=== PATIENT | female | born 1970 | race Caucasian/White ===

== ENCOUNTER → 2017-10-26 | Outpatient (CLI) | payer BC ==
--- NOTE | 2017-11-02 15:54 | MM ---
Reason for exam: screening (asymptomatic). MG 3D Screening Mammo W/Cad Bilateral CC and MLO view(s) were taken. The breast tissue is heterogeneously dense. This may lower the sensitivity of mammography. No suspicious abnormality. No significant changes when compared with prior studies. ASSESSMENT: Negative, BI-RAD 1 RECOMMENDATION: Routine screening mammogram of both breasts in 1 year.
== END | disposition home or self-care (01) ==
LOC: RADMAMWWP 16:50
PROVIDERS: ATTEND Family Medicine
DX: Z12.31 Encounter for screening mammogram for malignant neoplasm of breast (principal)
CPT/HCPCS: 77063; 77067

== ENCOUNTER → 2018-01-25 | Outpatient (CLI) | payer BC ==
--- NOTE | 2018-01-25 20:50 | CONS ---
CONSULTATION DATE OF SERVICE: 01/25/2018 47-year-old lady has [facility]oring and awakenings from sleep. HISTORY OF PRESENT ILLNESS/SLEEP-WAKE EVALUATION: Patient usual sleep schedule on weekdays from 9:00 p.m. until 5:30 -6:00 a.m. and on weekends from 9:00 or 10:00 p.m. until 5:30 - 7:00 a.m. No problem with falling asleep. No TV in bedroom. She sleeps in different position with her and according to him, she has loud snoring. She wakes up from sleep several times with up to 2 episodes of nocturia at night. She increased her weight in the last 5 years about 50 pounds. No history of hypnagogic hallucinations, sleep paralysis or cataplexy. In the morning, she wakes up tired, may feel sleepy during the day. [place] Sleepiness Scale is 6. Oximetry which was done in 01/25/2018 showed oxygen below or equal 88% for 28.4 minutes and there are episodes of oxygen desaturation during the sleep. PAST MEDICAL HISTORY: Basically negative except episodes of hot flashes recently. PAST SURGICAL HISTORY: D&C. REVIEW OF SYSTEMS: Awakenings from sleep. Increasing weight, hot flashes. SOCIAL HISTORY: Negative for smoking. Alcohol consumption rarely. MEDICATIONS: None. FAMILY HISTORY: Heart problems, arthritis, mental illness. PHYSICAL EXAM: GENERAL lady without distress. VITAL SIGNS BP 122/69, HR 74, height 4 feet 10 inches, weight 182.8, body mass index 37.3, temperature 98.2, oxygen saturation at room air 99%. HEDOTTIE PERRLA, EOMI, evaluation of oropharynx showed extremely low position of soft palate. Neck 15-2/3 inches in circumference. NECK Supple, no JVD. Thyroid is not palpable. LUNGS Clear to percussion and to auscultation. Good air exchange. No wheezing or rhonchi. HEART S1, S2 regular. No murmurs, gallops, or rubs. ABDOMEN Obese. Soft and nontender. Bowel sounds are present. No organomegaly appreciated. EXTREMITIES No clubbing or cyanosis. LEATHER PIECE INSPECTOR Awake, alert, and oriented X3. Cranial nerves 2 to 7 intact. There is no fasciculation or atrophy. noted. No focal deficits observed. PLAN: 1. Home sleep apnea test for evaluation of patient breathing and confirming some breathing problem during the sleep. 2. Following plan after reviewing sleep study. 3. Losing weight. 4. Sleep hygiene with regular time in bed for at least 8 hours. 5. No driving if feeling sleepiness. Thank you very much for referring this patient for consultation. Sincerely, Rangel Rivera MD, PhD, FAASM Diplomat of [place] [employer] [place] [employer] [facility] [place] MMODL / IJN: [id number] /
== END | disposition home or self-care (01) ==
LOC: SLEEP 16:34
PROVIDERS: ATTEND Internal Medicine
DX: R06.83 Snoring (principal); R35.1 Nocturia
CPT/HCPCS: 99211

== ENCOUNTER → 2020-05-04 | Outpatient (CLI) | payer BC ==
--- NOTE | 2020-05-06 08:42 | MM ---
Reason for exam: screening (asymptomatic). Last mammogram was performed 2 years and 6 months ago. History: Took hormonal contraceptives for 2 years. Physical Findings: A clinical breast exam by your physician is recommended on an annual basis and results should be correlated with mammographic findings. MG 3D Screening Mammo W/Cad Bilateral CC and MLO view(s) were taken. Prior study comparison: October 26, 2017, bilateral MG 3d screening mammo w/cad. There are scattered fibroglandular densities. No significant changes when compared with prior studies. ASSESSMENT: Benign, BI-RAD 2 RECOMMENDATION: Routine screening mammogram of both breasts in 1 year.
== END | disposition home or self-care (01) ==
LOC: RADMAMWWP 06:55
PROVIDERS: ATTEND Family Medicine
DX: Z12.31 Encounter for screening mammogram for malignant neoplasm of breast (principal)
CPT/HCPCS: 77063; 77067

== ENCOUNTER → 2021-09-03 | Outpatient (CLI) | payer BC ==
--- NOTE | 2021-09-06 14:20 | MM ---
Reason for Exam: Screening (asymptomatic). Last mammogram was performed 1 year(s) and 4 month(s) ago. Patient History: Menarche at age 10. First Full-Term at age 17. Patient used Hormonal Contraceptives for 2 years. Risk Values: Juju 5 year model risk: 0.8%. NCI Lifetime model risk: 7.1%. Prior Study Comparison: 10/26/2017 Bilateral Screening Mammogram, [facility]. 05/04/2020 Bilateral Screening Mammogram, [facility]. Tissue Density: There are scattered fibroglandular densities. Findings: Analyzed By CAD. There is no suspicious group of microcalcifications or new suspicious mass in either breast. Overall Assessment: Negative, BI-RAD 1 Management: Screening Mammogram of both breasts in 1 year. A clinical breast exam by your physician is recommended on an annual basis and results should be correlated with mammographic findings. Electronically signed and approved by: Jelani Parikh M.D. Radiologis
== END | disposition home or self-care (01) ==
LOC: RADMAMWWP 14:34
PROVIDERS: ATTEND Family Medicine
DX: Z12.31 Encounter for screening mammogram for malignant neoplasm of breast (principal)
CPT/HCPCS: 77063; 77067

== ENCOUNTER 2023-01-17 12:05 | Emergency (ER) | payer BC ==
[2023-01-17] MEDS ORDERED: IBUPROFEN 600 MG TAB PO STA (12:38)
[2023-01-17] MEDS ORDERED: ACETAMINOPHEN TAB 500 MG TAB PO STA (12:38)
--- NOTE | 2023-01-17 13:03 | ED ---
General Adult HPI - General Chief complaint: Upper Respiratory Infection Stated complaint: chest pressure Time Seen by Provider: 01/17/23 12:10 Source: patient, RN notes reviewed, old records reviewed Mode of arrival: ambulatory Limitations: no limitations - History of Present Illness Initial comments: This a 52-year-old female presents emergency Department complaining of one week history of upper respiratory symptoms. Patient states she's been congested occasional cough and has body aches. Patient states she went to the urgent care and they sent her over here after she tested negative for COVID and influenza. Patient states she's had a little bit of a sore throat but not bad. Patient denies any tobacco to breathing or shortness of breath per patient denies coughing up any sputum. Patient denies abdominal pain patient denies nausea vomiting per patient denies any dysuria hematuria urinary frequency. - Related Data Home Medications Medication Instructions Recorded Confirmed Cetirizine HCl [Zyrtec] 10 mg PO DAILY PRN 01/17/23 01/17/23 Famotidine [Pepcid AC] 10 - 20 mg PO DAILY PRN 01/17/23 01/17/23 Ibuprofen [Motrin Ib] 200 - 400 mg PO Q8H PRN 01/17/23 01/17/23 Allergies Allergy/AdvReac Type Severity Reaction Status Date / Time methylprednisolone Allergy Dyspnea Verified 01/17/23 13:22 [From Solu-Medrol] Review of Systems ROS Statement: Those systems with pertinent positive or pertinent negative responses have been documented in the HPI. ROS Other: All systems not noted in ROS Statement are negative. Past Medical History Past Medical History: No Reported History History of Any Multi-Drug Resistant Organisms: None Reported Additional Past Surgical History / Comment(s): D & C Past Psychological History: No Psychological Hx Reported Smoking Status: Current every day smoker Past Alcohol Use History: None Reported Past Drug Use History: None Reported General Exam - General Exam Comments Initial Comments: GENERAL: Patient is well-developed and well-nourished. Patient is nontoxic and well- hydrated and is in mild distress. I took the patient's temperature was 100.3 ENT: Neck is soft and supple. No significant lymphadenopathy is noted. Oropharynx is clear. Moist mucous membranes. Neck has full range of motion without eliciting any pain. EYES: The sclera were anicteric and conjunctiva were pink and moist. Extraocular movements were intact and pupils were equal round and reactive to light. Eyelids were unremarkable. PULMONARY: Unlabored respirations. Good breath sounds bilaterally. No audible rales rhonchi or wheezing was noted. CARDIOVASCULAR: Patient was tachycardic at 115 bpm ABDOMEN: Soft and nontender with normal bowel sounds. SKIN: Skin is clear with no lesions or rashes and otherwise unremarkable. NEUROLOGIC: Patient is alert and oriented x3. Cranial nerves II through XII are grossly intact. Motor and sensory are also intact. Normal speech, volume and content. Symmetrical smile. MUSCULOSKELETAL: Normal extremities with adequate strength and full range of motion. LYMPHATICS: No significant lymphadenopathy is noted PSYCHIATRIC: Normal psychiatric evaluation. Limitations: no limitations Course Vital Signs 01/17/23 01/17/23 01/17/23 12:08 12:34 14:23 Temperature 98.8 F 100.3 F H 99.5 F Pulse Rate 115 H 103 H Respiratory 20 16 Rate Blood Pressure 119/67 115/81 O2 Sat by Pulse 99 98 Oximetry Medical Decision Making - Medical Decision Making Was pt. sent in by a medical professional or institution (, PA, BUILDING CERTIFIER, urgent care, hospital, or halfway...) When possible be specific @ -Patient was sent to us by urgent care Did you speak to anyone other than the patient for history (EMS, parent, family, police, friend...)? What history was obtained from this source @ -No Did you review nursing and triage notes (agree or disagree)? Why? @ -I reviewed and agree with nursing and triage notes Were old charts reviewed (outside hosp., previous admission, EMS record, old EKG, old radiological studies, urgent care reports/EKG's, halfway records)? Report findings @ -No old charts were reviewed Differential Diagnosis (chest pain, altered mental status, abdominal pain women, abdominal pain men, vaginal bleeding, weakness, fever, dyspnea, syncope, headache, dizziness, GI bleed, back pain, seizure, CVA, palpatations, mental health, musculoskeletal)? @ -COVID, influenza A, influenza B, RSV, pneumonia, bronchitis this is not an all inclusive list EKG interpreted by me (3pts min.). @ -As above X-rays interpreted by me (1pt min.). @ -Chest x-ray shows no acute abnormality CT interpreted by me (1pt min.). @ -None done U/S interpreted by me (1pt. min.). @ -None done What testing was considered but not performed or refused? (CT, X-rays, U/S, labs)? Why? @ -None What meds were considered but not given or refused? Why? @ -None Did you discuss the management of the patient with other professionals (professionals i.e. Dr., PA, BUILDING CERTIFIER, lab, RT, psych nurse, social media content specialist, magnetometer operator, teacher, administrative hearing officer, field nurse case manager)? Give summary @ -No Was smoking cessation discussed for >3mins.? @ -No Was critical care preformed (if so, how long)? @ -No Were there social determinants of health that impacted care today? How? (Homelessness, low income, unemployed, alcoholism, drug addiction, transportation, low edu. Level, literacy, decrease access to med. care, snf, rehab)? @ -No Was there de-escalation of care discussed even if they declined (Discuss DNR or withdrawal of care, Hospice)? DNR status @ -No What co-morbidities impacted this encounter? (DM, HTN, Smoking, COPD, CAD, Cancer, CVA, ARF, Chemo, Hep., AIDS, mental health diagnosis, sleep apnea, morbid obesity)? @ -None Was patient admitted / discharged? Hospital course, mention meds given and route, prescriptions, significant lab abnormalities, going to OR and other pertinent info. @ -Is given Tylenol and Motrin to reduce the fever and after that her heart rate was 103 which was down from the 1:15 and 120 when she arrived. Patient was feeling better and had no further complaints in the upper respiratory symptoms Undiagnosed new problem with uncertain prognosis? @ -No Drug Therapy requiring intensive monitoring for toxicity (Heparin, Nitro, Insulin, Cardizem)? @ -No Were any procedures done? @ -No Diagnosis/symptom? @ -Upper respiratory infection Acute, or Chronic, or Acute on Chronic? @ -Acute Uncomplicated (without systemic symptoms) or Complicated (systemic symptoms)? @ -Uncomplicated Side effects of treatment? @ -No Exacerbation, Progression, or Severe Exacerbation? @ -No Poses a threat to life or bodily function? How? (Chest pain, [place], [place], pneumonia, PE, COPD, DKA, ARF, appy, cholecystitis, CVA, Diverticulitis, Homicidal, Suicidal, threat to staff... and all critical care pts) @ -No - Lab Data Lab Results 01/17/23 Range/Units 13:00 Influenza Type A (PCR) Not Detected (Not Detectd) Influenza Type B (PCR) Not Detected (Not Detectd) RSV (PCR) Not Detected (Not Detectd) SARS-CoV-2 (PCR) Not Detected (Not Detectd) Disposition Clinical Impression: Acute upper respiratory infection Disposition: HOME SELF-CARE Condition: Good Instructions (If sedation given, give patient instructions): Upper Respiratory Infection (ED) Is patient prescribed a controlled substance at d/c from ED?: No Referrals: Elijah Saeed MD [Primary Care Provider] - 1-2 days Time of Disposition: 14:49
--- NOTE | 2023-01-17 13:58 | XR ---
EXAMINATION TYPE: XR chest 2V DATE OF EXAM: 01/17/2023 COMPARISON: None INDICATION: Difficulty breathing TECHNIQUE: Frontal and lateral views of the chest are obtained. FINDINGS: The heart size is normal. The pulmonary vasculature is normal. The lungs are clear. IMPRESSION: 1. No acute pulmonary process.
[2023-01-17 14:33] VITALS: BP 115/81; PULSE 103; RESP 16; TEMP 99.5
== END 2023-01-17 15:05 | disposition home or self-care (01) ==
LOC: EC 12:05
DX: J06.9 Acute upper respiratory infection, unspecified (principal); F17.200 Nicotine dependence, unspecified, uncomplicated; Z88.8 Allergy status to other drugs, medicaments and biological substances; Z20.822 Contact with and (suspected) exposure to COVID-19
CPT/HCPCS: 71046; 87636; 99284

== ENCOUNTER 2023-01-19 17:36 | Emergency (ER) | payer BC ==
--- NOTE | 2023-01-19 18:34 | ED ---
General Adult HPI - General Source: patient, RN notes reviewed <Julianna Arroyo - Last Filed: 01/19/23 18:32> <Justice Chavez - Last Filed: 01/20/23 00:13> - General Stated complaint: Increased heart rate Time Seen by Provider: 01/19/23 18:30 - History of Present Illness Initial comments: 52-year-old female presents to the emergency room chief complaint of elevated heart rate. Patient states that she is sent in by Dr. Saeed's office. She reports that she feels like her heart is racing. She states this is worse when she stands up. She states that this started around 9 days ago with flu like symptoms. The muscle aches improved but she continues to have elevated heart rate and palpitations. (Julianna Arroyo) 52-year-old female presenting with chief complaint of palpitations. Patient reports that she has elevated heart rate for several days. She was seen at our facility on 01/17 who was diagnosed with a URI after negative chest x-ray and 4- plex swab. Patient was seen at her PCPs office today and she was sent to the ER to rule out pulmonary embolism. Patient reports shortness of breath and chest discomfort. She's had continued fevers and elevated heart rate. She admits to diffuse muscle aches. Denies nausea, vomiting, diarrhea, abdominal pain, numbness, tingling. (Justice Chavez) - Related Data Home Medications Medication Instructions Recorded Confirmed Cetirizine HCl [Zyrtec] 10 mg PO DAILY PRN 01/17/23 01/19/23 Famotidine [Pepcid AC] 20 mg PO BID PRN 01/17/23 01/19/23 Ibuprofen [Motrin Ib] 800 mg PO Q8H PRN 01/17/23 01/19/23 Acetaminophen Tab [Tylenol Tab] 1,000 mg PO Q6HR PRN 01/19/23 01/19/23 Allergies Allergy/AdvReac Type Severity Reaction Status Date / Time methylprednisolone Allergy Dyspnea Verified 01/19/23 20:17 [From Solu-Medrol] Review of Systems ROS Other: All systems not noted in ROS Statement are negative. <Julianna Arroyo - Last Filed: 01/19/23 18:32> ROS Other: All systems not noted in ROS Statement are negative. <Justice Chavez - Last Filed: 01/20/23 00:13> ROS Statement: Those systems with pertinent positive or pertinent negative responses have been documented in the HPI. Past Medical History Past Medical History: No Reported History History of Any Multi-Drug Resistant Organisms: None Reported Additional Past Surgical History / Comment(s): D & C Past Psychological History: No Psychological Hx Reported Smoking Status: Current every day smoker Past Alcohol Use History: None Reported Past Drug Use History: None Reported <Julianna Arroyo - Last Filed: 01/19/23 18:32> General Exam <Julianna Arroyo - Last Filed: 01/19/23 18:32> Limitations: no limitations General appearance: alert, in no apparent distress Head exam: Present: atraumatic, normocephalic, normal inspection Eye exam: Present: normal appearance, EOMI Neck exam: Present: normal inspection, full ROM Respiratory exam: Present: normal lung sounds bilaterally. Absent: respiratory distress, wheezes, rales, rhonchi, stridor Cardiovascular Exam: Present: normal rhythm, tachycardia, normal heart sounds. Absent: systolic murmur, diastolic murmur, rubs, gallop, clicks GI/Abdominal exam: Present: soft. Absent: distended, tenderness, guarding, rebound, rigid Extremities exam: Absent: pedal edema Neurological exam: Present: alert, oriented X3 Psychiatric exam: Present: normal affect, normal mood Skin exam: Present: warm, dry, intact, normal color. Absent: rash <Justice Chavez - Last Filed: 01/20/23 00:13> - General Exam Comments Initial Comments: Visual Physical Exam Vital signs reviewed General: Well-appearing, nontoxic, no acute distress. Head: Normocephalic, atraumatic Eyes: PERRLA, EOMI ENT: Airway patent Chest: Nonlabored breathing Skin: No visual rash, normal skin tone Neuro: Alert and oriented 3 Musculoskeletal: No gross abnormalities (Julianna Arroyo) Course Vital Signs 01/19/23 01/19/23 01/19/23 18:27 19:54 22:19 Temperature 100.7 F H 102.7 F H 100.5 F H Pulse Rate 120 H 116 H 129 H Respiratory 20 18 20 Rate Blood Pressure 149/98 141/96 111/71 O2 Sat by Pulse 98 100 96 Oximetry 01/19/23 23:36 Temperature 98.8 F Pulse Rate 104 H Respiratory 18 Rate Blood Pressure 111/71 O2 Sat by Pulse 94 L Oximetry Medical Decision Making <Julianna Arroyo - Last Filed: 01/19/23 18:32> - Lab Data Result diagrams: 01/19/23 19:25 01/19/23 19:25 <Justice Chavez - Last Filed: 01/20/23 00:13> - Medical Decision Making I preformed the quick note portion of this chart. Electronically signed by Julianna Arroyo PA-C (Julianna Arroyo) Was pt. sent in by a medical professional or institution (LAURO Lugo, SALES SUPPORT REPRESENTATIVE, urgent care, hospital, or alf...) When possible be specific @ -sent by PCP Did you speak to anyone other than the patient for history (EMS, parent, family, police, friend...)? What history was obtained from this source @ -No Did you review nursing and triage notes (agree or disagree)? Why? @ -I reviewed and agree with nursing and triage notes Were old charts reviewed (outside hosp., previous admission, EMS record, old EKG, old radiological studies, urgent care reports/EKG's, alf records)? Report findings @ -No old charts were reviewed Differential Diagnosis (chest pain, altered mental status, abdominal pain women, abdominal pain men, vaginal bleeding, weakness, fever, dyspnea, syncope, headache, dizziness, GI bleed, back pain, seizure, CVA, palpatations, mental health, musculoskeletal)? @ -MDM Differential Dyspnea: Coronary syndrome, arrhythmia, tamponade, asthma, COPD, pulmonary embolism, pn eumonia, pneumothorax, pulmonary effusion, anaphylaxis, diabetic ketoacidosis, flailed chest, pulmonary contusion, diaphragmatic rupture, anemia, neuromuscular this is not meant to be an all-inclusive list. EKG interpreted by me (3pts min.). @ -EKG shows sinus tachycardia ventricular rate 118. W[place] interval 178. QRS 88. QT interval 2. QTC 39. Osteoarthritis.. X-rays interpreted by me (1pt min.). @ -Negative chest x-ray CT interpreted by me (1pt min.). @ -Negative CTA of the chest U/S interpreted by me (1pt. min.). @ -None done What testing was considered but not performed or refused? (CT, X-rays, U/S, labs)? Why? @ -None What meds were considered but not given or refused? Why? @ -None Did you discuss the management of the patient with other professionals (professionals i.e. , PA, SALES SUPPORT REPRESENTATIVE, lab, RT, psych nurse, social sciences research scientist, exhibit builder, teacher, youth officer, case mgr)? Give summary @ -No Was smoking cessation discussed for >3mins.? @ -No Was critical care preformed (if so, how long)? @ -No Were there social determinants of health that impacted care today? How? (Homelessness, low income, unemployed, alcoholism, drug addiction, transportation, low edu. Level, literacy, decrease access to med. care, correction, rehab)? @ -No Was there de-escalation of care discussed even if they declined (Discuss DNR or withdrawal of care, Hospice)? DNR status @ -No What co-morbidities impacted this encounter? (DM, HTN, Smoking, COPD, CAD, Cancer, CVA, ARF, Chemo, Hep., AIDS, mental health diagnosis, sleep apnea, morbid obesity)? @ -None Was patient admitted / discharged? Hospital course, mention meds given and rout e, prescriptions, significant lab abnormalities, going to OR and other pertinent info. @ -52-year-old female presenting with chief complaint of elevated heart rate. On physical exam patient is found to be febrile and tachycardic. Patient is given Motrin Tylenol and fluids as well as Ativan for anxiety. Lab work shows no leukocytosis or anemia. Mild transaminitis. Negative troponin. TSH 8.580 with a free T4 of 1.02 d-dimer 2.02. CT shows no pulmonary embolism or other a cute process. On reassessment patient is resting comfortably. She is educated on today's findings. She'll be discharged home and instructed to follow-up with Dr. Saeed. Follow-up with PCP. Report back to ER with any new or worsening symptoms. Discussed return parameters and answered all questions. Patient conveyed verbal understanding and agreed to the plan. I discussed this case in detail with my attending Dr. Dawkins Undiagnosed new problem with uncertain prognosis? @ -No Drug Therapy requiring intensive monitoring for toxicity (Heparin, Nitro, Insulin, Cardizem)? @ -No Were any procedures done? @ -No Diagnosis/symptom? @ -URI Acute, or Chronic, or Acute on Chronic? @ -Acute Uncomplicated (without systemic symptoms) or Complicated (systemic symptoms)? @ -Uncomplicated Side effects of treatment? @ -No Exacerbation, Progression, or Severe Exacerbation? @ -No Poses a threat to life or bodily function? How? (Chest pain, USA, MD, pneumonia, PE, COPD, DKA, ARF, appy, cholecystitis, CVA, Diverticulitis, Homicidal, Suicidal, threat to staff... and all critical care pts) @ -No (Justice Chavez) - Lab Data Lab Results 01/19/23 01/19/23 01/19/23 Range/Units 19:25 19:25 19:25 WBC 6.3 (3.8-10.6) k/uL RBC 5.18 (3.80-5.40) m/uL Hgb 16.0 (11.4-16.0) gm/dL Hct 47.6 H (34.0-46.0) % MCV 91.8 (80.0-100.0) fL MCH 30.8 (25.0-35.0) pg MCHC 33.6 (31.0-37.0) g/dL RDW 13.9 (11.5-15.5) % Plt Count 202 (150-450) k/uL MPV 7.4 Neutrophils % (Manual) 48 % Band Neuts % (Manual) 5 % Lymphocytes % (Manual) 31 % Monocytes % (Manual) 14 % Eosinophils % (Manual) 2 % Neutrophils # (Manual) 3.30 (1.3-7.7) k/uL Lymphocytes # (Manual) 1.95 (1.0-4.8) k/uL Monocytes # (Manual) 0.88 (0-1.0) k/uL Eosinophils # (Manual) 0.13 (0-0.7) k/uL Nucleated RBCs 0 (0-0) /100 WBC Manual Slide Review Performed RBC Morphology Normal PT 9.9 L (10.0-12.5) sec INR 0.9 (<1.2) APTT 24.8 (22.0-30.0) sec D-Dimer 2.02 H (<0.60) mg/L FEU Sodium 138 (137-145) mmol/L Potassium 4.1 (3.5-5.1) mmol/L Chloride 101 (98-107) mmol/L Carbon Dioxide 26 (22-30) mmol/L Anion Gap 11 mmol/L BUN 12 (7-17) mg/dL Creatinine 0.84 (0.52-1.04) mg/dL Est GFR (CKD-EPI)AfAm >90 (>60 ml/min/1.73 sqM) Est GFR (CKD-EPI)NonAf 80 (>60 ml/min/1.73 sqM) Glucose 140 H (74-99) mg/dL Calcium 9.0 (8.4-10.2) mg/dL Magnesium 1.9 (1.6-2.3) mg/dL Total Bilirubin 0.6 (0.2-1.3) mg/dL AST 140 H (14-36) U/L ALT 215 H (4-34) U/L Alkaline Phosphatase 211 H (38-126) U/L Troponin I (0.000-0.034) ng/mL Total Protein 8.0 (6.3-8.2) g/dL Albumin 4.1 (3.5-5.0) g/dL TSH 8.580 H (0.465-4.680) mIU/L Free T4 1.02 (0.78-2.19) ng/dL 01/19/23 Range/Units 19:25 WBC (3.8-10.6) k/uL RBC (3.80-5.40) m/uL Hgb (11.4-16.0) gm/dL Hct (34.0-46.0) % MCV (80.0-100.0) fL MCH (25.0-35.0) pg MCHC (31.0-37.0) g/dL RDW (11.5-15.5) % Plt Count (150-450) k/uL MPV Neutrophils % (Manual) % Band Neuts % (Manual) % Lymphocytes % (Manual) % Monocytes % (Manual) % Eosinophils % (Manual) % Neutrophils # (Manual) (1.3-7.7) k/uL Lymphocytes # (Manual) (1.0-4.8) k/uL Monocytes # (Manual) (0-1.0) k/uL Eosinophils # (Manual) (0-0.7) k/uL Nucleated RBCs (0-0) /100 WBC Manual Slide Review RBC Morphology PT (10.0-12.5) sec INR (<1.2) APTT (22.0-30.0) sec D-Dimer (<0.60) mg/L FEU Sodium (137-145) mmol/L Potassium (3.5-5.1) mmol/L Chloride (98-107) mmol/L Carbon Dioxide (22-30) mmol/L Anion Gap mmol/L BUN (7-17) mg/dL Creatinine (0.52-1.04) mg/dL Est GFR (CKD-EPI)AfAm (>60 ml/min/1.73 sqM) Est GFR (CKD-EPI)NonAf (>60 ml/min/1.73 sqM) Glucose (74-99) mg/dL Calcium (8.4-10.2) mg/dL Magnesium (1.6-2.3) mg/dL Total Bilirubin (0.2-1.3) mg/dL AST (14-36) U/L ALT (4-34) U/L Alkaline Phosphatase (38-126) U/L Troponin I <0.012 (0.000-0.034) ng/mL Total Protein (6.3-8.2) g/dL Albumin (3.5-5.0) g/dL TSH (0.465-4.680) mIU/L Free T4 (0.78-2.19) ng/dL Disposition <Julianna Arroyo - Last Filed: 01/19/23 18:32> Is patient prescribed a controlled substance at d/c from ED?: No Time of Disposition: 23:10 <Justice Chavez - Last Filed: 01/20/23 00:13> Clinical Impression: Acute upper respiratory infection Disposition: HOME SELF-CARE Condition: Good Instructions (If sedation given, give patient instructions): Upper Respiratory Infection (ED) Additional Instructions: Follow-up with PCP. Report back to ER with any new or worsening symptoms. Referrals: Elijah Saeed MD [Primary Care Provider] - 1-2 days
--- NOTE | 2023-01-19 20:01 | XR ---
EXAMINATION: XR chest 2V: 01/19/2023 7:43 PM CLINICAL INDICATION: dysrhythmia TECHNIQUE: Departmental protocol COMPARISON: None FINDINGS: The lungs are clear. The pleural spaces are negative. The cardiac silhouette is not enlarged. The remainder of the mediastinal silhouette is unremarkable. The skeletal structures and soft tissues are negative for acute findings. IMPRESSION: No acute radiographic process.
[2023-01-19 20:02] LABS: INR 0.9 (<1.2); Partial Thromboplastin Time 24.8 sec (22.0-30.0); Prothrombin Time 9.9 sec (10.0-12.5)
[2023-01-19 20:08] LABS: ALT 215 U/L (4-34); AST 140 U/L (14-36); African American GFR (CKD) >90 (>60 ml/min/1.73 sqM); Albumin 4.1 g/dL (3.5-5.0); Alkaline Phosphatase 211 U/L (38-126); Anion Gap 11 mmol/L; Blood Urea Nitrogen 12 mg/dL (7-17); Carbon Dioxide 26 mmol/L (22-30); Chloride 101 mmol/L (98-107); Glucose 140 mg/dL (74-99); Magnesium 1.9 mg/dL (1.6-2.3); Non-African American GFR(CKD) 80 (>60 ml/min/1.73 sqM); Potassium 4.1 mmol/L (3.5-5.1); Sodium 138 mmol/L (137-145); Total Bilirubin 0.6 mg/dL (0.2-1.3)
[2023-01-19] MEDS ORDERED: ACETAMINOPHEN TAB 500 MG TAB PO STA (20:21)
[2023-01-19] MEDS ORDERED: IBUPROFEN 600 MG TAB PO STA (20:21)
[2023-01-19] MEDS ORDERED: LORazepam 2 MG/ML INJ IV STA (20:21)
[2023-01-19 20:45] LABS: HCT 47.6 % (34.0-46.0); MCH 30.8 pg (25.0-35.0); MCHC 33.6 g/dL (31.0-37.0); MCV 91.8 fL (80.0-100.0); Mean Platelet Volume 7.4; Platelet Count 202 k/uL (150-450); RBC 5.18 m/uL (3.80-5.40); RDW 13.9 % (11.5-15.5); WBC 6.3 k/uL (3.8-10.6)
[2023-01-19 21:09] LABS: T4, Free (Free Thyroxine) 1.02 ng/dL (0.78-2.19)
--- NOTE | 2023-01-19 21:51 | CT ---
EXAMINATION TYPE: CT chest angio for PE DATE OF EXAM: 01/19/2023 COMPARISON: None HISTORY: chest pain, SOB since monday CT DLP: 474.5 mGycm. Automated Exposure Control for Dose Reduction was Utilized. CONTRAST: CTA scan of the thorax is performed with IV Contrast, patient injected with 100 mL of Isovu e 370. MIP Images are created on CT scanner and reviewed. 3D reconstructed images are created on an independent workstation and reviewed. FINDINGS: LUNGS: The lungs are grossly clear, there is no concerning parenchymal mass or nodule identified. T here is no pleural effusion or pneumothorax seen. The tracheobronchial tree is patent. MEDIASTINUM: There is satisfactory enhancement of the pulmonary artery and its branches, with no CT e vidence for pulmonary embolism. There is no acute aortic process. There are no greater than 1 cm elisa r or mediastinal lymph nodes. No cardiomegaly or pericardial effusion. OTHER: No additional significant abnormality is seen. IMPRESSION: No acute process.
[2023-01-19] MEDS ORDERED: SODIUM CHLORIDE 0.9% 1,000 ML IV ONE (22:23)
[2023-01-19 22:29] VITALS: BP 111/71
[2023-01-19 23:06] LABS: Band Neutrophils % 5 %; Eosinophils # (M) 0.13 k/uL (0-0.7); Lymphocytes # (M) 1.95 k/uL (1.0-4.8); Monocytes # (M) 0.88 k/uL (0-1.0); Neutrophils % (M) 48 %; Nucleated Red Blood Cells 0 /100 WBC (0-0); Total Cells Counted 100
[2023-01-19 23:07] LABS: RBC Morphology Normal
[2023-01-19 23:46] VITALS: PULSE 104; RESP 18; TEMP 98.8
== END 2023-01-19 23:38 | disposition home or self-care (01) ==
LOC: EC 17:36
DX: J06.9 Acute upper respiratory infection, unspecified (principal); F17.200 Nicotine dependence, unspecified, uncomplicated; Z88.8 Allergy status to other drugs, medicaments and biological substances
CPT/HCPCS: 36415; 93005; 85379; 84439; 80053; 84443; 83735; 84484; 85025; 85610; 85730; 71046; 71275; 99284; 96374; 96361; J2060; Q9967

== ENCOUNTER → 2023-03-15 | Outpatient (CLI) | payer BC ==
--- NOTE | 2023-03-20 13:46 | MM ---
Reason for Exam: Screening (asymptomatic). Last mammogram was performed 1 year(s) and 6 month(s) ago. Patient History: Menarche at age 10. First Full-Term at age 17. Perimenopausal. Patient used Hormonal Contraceptives for 2 years. Last menstrual period: 12/18/2022 Risk Values: Juju 5 year model risk: 0.8%. NCI Lifetime model risk: 6.9%. Prior Study Comparison: 10/26/2017 Bilateral Screening Mammogram, [facility]. 05/04/2020 Bilateral Screening Mammogram, [facility]. 09/03/2021 Bilateral MG 3D screening mammo w/cad, [facility]. Tissue Density: There are scattered fibroglandular densities. Findings: Analyzed By CAD. There is no suspicious group of microcalcifications or new suspicious mass in either breast. Overall Assessment: Negative, BI-RAD 1 Management: Screening Mammogram of both breasts in 1 year. . Patient should continue monthly self-breast exams. A clinical breast exam by your physician is recommended on an annual basis. This exam should not preclude additional follow-up of suspicious palpable abnormalities. Note on Juju scores and lifetime risk: 1. A Juju score greater than 3% is considered moderate risk. If this is the case, consider specialist referral to assess eligibility for a risk reducing agent. 2. If overall lifetime risk for the development of breast cancer is 20% or higher, the patient may qualify for future screening with alternating mammogram and breast MRI. Electronically signed and approved by: Simran Simmons M.D. Radiologist
== END | disposition home or self-care (01) ==
LOC: RADMAMWWP 15:44
PROVIDERS: ATTEND Family Medicine
DX: Z12.31 Encounter for screening mammogram for malignant neoplasm of breast (principal)
CPT/HCPCS: 77063; 77067

== ENCOUNTER → 2024-05-25 | Outpatient (CLI) | payer BC ==
--- NOTE | 2024-05-25 13:03 | XR ---
Chest, 2 view. CLINICAL INDICATION: Female, 53 years old with history of J18.9 PNEUMONIA, UNSPECIFIED ORGANISM COMPARISON: 01/19/2023 TECHNIQUE: PA and lateral views the chest are obtained. FINDINGS: The lungs are clear and there is no consolidative or interstitial opacity. There is no pleural effusion or pneumothorax. The heart, pulmonary vasculature, mediastinum and elisa appear normal. The osseous structures are intact. IMPRESSION: No significant abnormality seen. No acute cardiopulmonary disease. [facility], , 05/25/2024 1:00 PM
== END | disposition home or self-care (01) ==
LOC: RADXRMAIN 12:39
PROVIDERS: ATTEND Family Medicine
DX: J18.9 Pneumonia, unspecified organism (principal)
CPT/HCPCS: 71046

== ENCOUNTER → 2024-05-27 | Outpatient (CLI) | payer BC ==
[2024-05-27 15:12] LABS: Basophils # (A) 0.07 X 10*3/uL (0.00-0.10); Basophils % (A) 0.7 %; Eosinophils # (A) 0.11 X 10*3/uL (0.04-0.35); HCT 45.9 % (37.2-46.3); HGB 14.3 g/dL (12.0-15.0); Lymphocytes # (A) 3.52 X 10*3/uL (0.90-5.00); Lymphocytes % (A) 33.3 %; MCH 28.3 pg (27.0-32.0); MCHC 31.2 g/dL (32.0-37.0); MCV 90.9 FL (80.0-97.0); Mean Platelet Volume 8.9 FL (9.5-12.2); Monocytes # (A) 0.81 X 10*3/uL (0.20-1.00); Monocytes % (A) 7.7 %; NRBC Per 100 WBC 0 X 10*3/uL (0.00-0.01); Neutrophils # (A) 5.94 X 10*3/uL (1.80-7.70); Neutrophils % (A) 56.3 %; Platelet Count 528 X 10*3/uL (140-440); RBC 5.05 X 10*6/uL (4.10-5.20); RDW 13.1 % (11.5-14.5); WBC 10.56 X 10*3/uL (4.50-10.00)
[2024-05-27 15:45] LABS: Chol/HDL Ratio 4.12 Ratio
[2024-05-27 15:46] LABS: ALT 87 U/L (8-44); AST 28 U/L (13-35); Albumin 4.1 g/dL (3.8-4.9); Albumin/Globulin Ratio 1.05 Ratio (1.60-3.17); Alkaline Phosphatase 157 U/L (41-126); BUN/Creat Ratio 9.71 Ratio (12.00-20.00); Blood Urea Nitrogen 6.8 mg/dL (9.0-27.0); Calcium 10.6 mg/dL (8.7-10.3); Carbon Dioxide 28.4 mmol/L (21.6-31.8); Chloride 102 mmol/L (96-109); Globulin 3.9 g/dL (1.6-3.3); Glucose 117 mg/dL (70-110); Sodium 142 mmol/L (135-145); T4, Free (Free Thyroxine) 0.97 ng/dL (0.80-1.80); Total Bilirubin 0.2 mg/dL (0.3-1.2)
== END | disposition home or self-care (01) ==
LOC: LABWHC1 09:44
PROVIDERS: ATTEND Family Medicine
DX: E11.65 Type 2 diabetes mellitus with hyperglycemia (principal)
CPT/HCPCS: 36415; 80053; 80061; 83036; 84439; 84443; 84481; 85025